=== PATIENT | male | born 1975 | race Caucasian/White ===

== ENCOUNTER 2021-04-13 03:27 | Emergency (ER) | payer OTHER ==
[2021-04-13 04:37] LABS: HEMOGLOBIN 15.5 gm/dl (14.0-17.5); RED BLOOD COUNT 5.12 M/UL (4.20-5.50); WHITE BLOOD COUNT 5.8 K/UL (4.5-11.0)
[2021-04-13 04:59] LABS: BUN/CREATININE RATIO 16 (0-10)
[2021-04-13] MEDS ORDERED: ZOFRAN ODT 4 MG4 MG PO (08:06)
== END 2021-04-13 08:27 | disposition home or self-care (01) ==
LOC: ER1 03:27
PROVIDERS: Emergency Medicine
DX: R10.13 Epigastric pain (principal); R11.2 Nausea with vomiting, unspecified; R07.9 Chest pain, unspecified; R50.9 Fever, unspecified; Z20.822 Contact with and (suspected) exposure to COVID-19; K21.9 Gastro-esophageal reflux disease without esophagitis; Z90.49 Acquired absence of other specified parts of digestive tract
CPT/HCPCS: 0240U; 71045; 80053; 81001; 82550; 82553; 83605; 83690; 83735; 83874; 84484; 85025; 87040; 87081; 87880; 93005; 96365; 96375; 99285; J2405; J7030